=== PATIENT | female | born 1980 | race Caucasian/White ===

== ENCOUNTER 2017-08-17 09:09 | Outpatient (RCR) | payer BC ==
[~2017-08-17 09:09] MED LIST: CIPRO500 MG PO; FIORICET1 EA ORAL; KEFLEX500 MG ORAL; LEVAQUIN500 MG PO; OXYCODONE-ACET1 EAC2 PO; SOMA350 MG PO
== END 2017-09-02 | disposition home or self-care (01) ==
LOC: WCC 09:09
DX: T81.50 Unspecified complication of foreign body accidentally left in body following procedure (principal); Y83.9 Surgical procedure, unspecified as the cause of abnormal reaction of the patient, or of later complication, without mention of misadventure at the time of the procedure; K58.9 Irritable bowel syndrome, unspecified; Z88.2 Allergy status to sulfonamides